=== PATIENT | male | born 2000 | race Caucasian/White ===

== ENCOUNTER 2024-01-10 16:13 | Emergency (ER) | payer MEDICAID ==
[~2024-01-10] VITALS: Ht 172.7 cm; Wt 65.8 kg
[2024-01-10 16:13] VITALS: BP_SYST 122; PULSE 70; RESP 18; TEMP 98.5; O2SAT 98
[2024-01-10] MEDS: NALOXONE HCL 2 MG/2 ML SYR IVP ONE (16:38)
[2024-01-10] MEDS: NALOXONE HCL 2 MG/2 ML SYR (NARCAN) IM ONE (17:02)
[2024-01-10] MEDS ORDERED: NALO4SPR NS (17:33)
[2024-01-10 17:46] VITALS: BP_SYST 120; PULSE 70; RESP 18; TEMP 98.5; O2SAT 98
== END 2024-01-10 17:47 ==
LOC: SED 16:13
DX: Z02.89 Encounter for other administrative examinations (principal); R41.82 Altered mental status, unspecified; R11.10 Vomiting, unspecified
CPT/HCPCS: 99283; 96372; J2310